=== PATIENT | female | born 1940 | race Caucasian/White ===

== ENCOUNTER 2019-11-27 08:34 | Outpatient (CLI) | payer MEDICARE, SELFPAY ==
--- NOTE | 2019-11-27 08:50 | XR_ITS ---
WS: [id number] PROCEDURE: XR chest 2V* [id number] CLINICAL INFORMATION: COUGH, LLL CRACKLES COMPARISON: September 04, 2012 FINDINGS: Heart: Cardiomegaly. Aortic calcification. Tortuous thoracic aorta. Lungs: Lungs are clear. No consolidation or pleural fluid. Moderate chronic emphysematous changes. Bones: Mild thoracic curve. XR/XR chest 2V* [id number] IMPRESSION: 1. Moderate chronic emphysematous changes. No acute pulmonary infiltrates. 2. Slight fibrosis left lung base. 3. Stable cardiomegaly.
== END 2019-11-27 08:35 | disposition home or self-care (01) ==
LOC: RADWPI 08:47
PROVIDERS: Family Provider Internal Medicine; PCP Internal Medicine; Visit Provider Internal Medicine
DX: R05 Cough (principal); J43.9 Emphysema, unspecified; J84.10 Pulmonary fibrosis, unspecified; I51.7 Cardiomegaly
CPT/HCPCS: 71046

== ENCOUNTER → 2021-05-20 16:15 | Outpatient (BNVA) | payer MEDICARE, SELFPAY | PROVIDERS: Family Provider Internal Medicine; PCP Internal Medicine; Visit Provider Nurse Practitioner Family | DX: R05.8 Other specified cough (principal); J98.11 Atelectasis; I51.7 Cardiomegaly | CPT/HCPCS: 71046 ==

== ENCOUNTER 2021-06-22 10:48 | Outpatient (CLI) | payer MEDICARE, SELFPAY ==
--- NOTE | 2021-06-22 10:58 | XR_ITS ---
WS: [id number] Exam: XR lumbar spine 2-3V* [id number] Date/Time of Exam: 06/22/2021 10:58 AM Reason For Exam: PAIN IN LUMBAR SPINE No acute fracture or dislocation. Mild biconcave deformity of L2 which may represent an old low-grade compression. Degenerative vacuum disc at L5-S1. Spondylosis. Mild facet DJD. No significant scoliosi s. Osteopenia. XR/XR lumbar spine 2-3V* [id number] IMPRESSION: 1. No acute fracture or malalignment. 2. Mild biconcave deformity of L2 which may represent an old low-grade compress ion fracture. 3. Degenerative changes.
== END 2021-06-22 10:49 | disposition home or self-care (01) ==
LOC: RAD 10:54
PROVIDERS: PCP Internal Medicine; Visit Provider Internal Medicine
DX: M54.50 Low back pain, unspecified (principal)
CPT/HCPCS: 72100

== ENCOUNTER 2021-07-06 17:52 | Emergency (ER) | payer MEDICARE, SELFPAY ==
[2021-07-06 18:12] VITALS: BP 124/84; PULSE 91; RESP 24; TEMP 36.7; O2SAT 95; BMI 30.2
--- NOTE | 2021-07-06 19:48 | CTR_ITS ---
PROCEDURE INFORMATION: Exam: CT Abdomen And Pelvis Without Contrast Exam date and time: 07/06/2021 7:48 PM Age: 80 years old Clinical indication: Abdominal pain; Flank; Right; Additional info: Eval for pain TECHNIQUE: Imaging protocol: Computed tomography of the abdomen and pelvis without contrast. Radiation optimization: All CT scans at this facility use at least one of these dose optimization techniques: automated exposure control; mA and/or kV adjustment per patient size (includes targeted exams where dose is matched to clinical indication); or iterative reconstruction. COMPARISON: CR XR lumbar spine 2-3V* [id number] 06/22/2021 11:12 AM RADIATION DOSE METRICS: Total DLP (mGy-cm): 1839.16 FINDINGS: Limitations: The absence of intravenous contrast lessens the sensitivity of this study for solid organ abnormalities. Pleural spaces: There are calcified pleural plaques anteriorly and posteriorly at both lung bases suggesting history of asbestos exposure. Heart: There is severe atherosclerotic calcification of the coronary arteries. Liver: There is an indeterminate subtle 3 cm size lesion posterior right lobe of the liver such as on image number 25 series 2. There is mild enlargement of the liver. Liver measures 20 cm in height. Gallbladder and bile ducts: There has been a cholecystectomy. Pancreas: Normal. No ductal dilation. Spleen: The spleen is normal. Adrenal glands: Normal. No mass. Kidneys and ureters: There has been a left nephrectomy. There is a right renal collecting system calcification. There is no evidence of right hydronephrosis. There is no stone in the right ureter. Stomach and bowel: There is no evidence of colitis/diverticulitis. Appendix: Not identified Intraperitoneal space: Unremarkable. No free air. No significant fluid collection. Vasculature: The aorta demonstrates mild atherosclerotic calcification. There is no evidence of an abdominal aortic aneurysm. Lymph nodes: There is right infrahilar mass and subcarinal adenopathy in the chest not fully evaluated on this exam. Further evaluation such as with contrast-enhanced CT scan of the chest suggested if not previously done. No abdominal adenopathy is identified. Urinary bladder: Unremarkable as visualized. Reproductive: There has been a hysterectomy. Bones/joints: There are lytic lesions in multiple vertebral bodies, right side of T6, anterior half of the T11 vertebral body, L2 vertebrae, mostly right side of the vertebral body and the left posterior elements with compression deformity of the superior endplate consistent with pathologic fracture and epidural extension posteriorly on the left. There is also lytic lesion involving the posterior aspect of the right side of L3 with compression fracture involving the right side of the superior endplate of L3. The L3 metastatic lesion extends into the right pedicle and there is epidural extension with associated spinal stenosis on the right. 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 There is also metastatic bone lesion posterior aspect of the right iliac crest measuring around 2 cm. Soft tissues: There is a large hernia containing bowel in the lateral abdominal wall left flank without incarceration or obstruction. CT/CT abdomen pelvis wo con [id number] IMPRESSION: 1. Findings worrisome for bone metastasis as described. 2. Findings in the right lung base worrisome for malignancy. 3. Right pleural effusion 4. Left flank abdominal wall hernia. 5. Indeterminate lesion in the right lobe of the liver. Further evaluation such as with contrast-enhanced study, or MRI suggested. 6. Coronary disease.
[2021-07-06 20:40] VITALS: RESP 34
[2021-07-06] MEDS: morphine 4 mg/mL SDV 1 mL IM (20:40)
--- NOTE | 2021-07-06 21:19 | PC.NURSE ---
patient received with c/o back pain for 6 weeks. 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 states has pain medications at home but needs more because of the pain. respirations even equal and unlabored. states no pain after medication given.
[2021-07-06] MEDS: lidocaine 5% Patch 1 PATCH TOPICAL (21:27)
[2021-07-06] MEDS: acetaminophen 500 mg Tablet PO (21:27)
--- NOTE | 2021-07-06 21:49 | ED_ITS ---
HPI - Back Pain/Injury General: Chief Complaint: Back Pain/Injury Stated Complaint: Back Pain Time Seen by Provider: 07/06/21 21:01 Course Vital Signs: Vital signs: Vital Signs Temperature 98.0 F 07/06/21 18:12 Pulse Rate 91 07/06/21 18:12 Respiratory Rate 34 H 07/06/21 20:40 Blood Pressure 124/84 07/06/21 18:12 Pulse Oximetry 95 07/06/21 18:12 MDM - Back Pain/Injury Labs Radiology Impressions Abdomen/Pelvis CT 07/06/21 19:48 IMPRESSION: 1. Findings worrisome for bone metastasis as described. 2. Findings in the right lung base worrisome for malignancy. 3. Right pleural effusion 4. Left flank abdominal wall hernia. 5. Indeterminate lesion in the right lobe of the liver. Further evaluation such as with contrast-enhanced study, or MRI suggested. 6. Coronary disease. ADDENDUM: 07/06/212044 Addendum: THIS REPORT CONTAINS FINDINGS THAT MAY BE CRITICAL TO PATIENT CARE. The findings were verbally communicated via telephone conference with TYREE ROPER at 8:43 PM TURNER SPLITTER MACHINE OPERATOR on 07/06/2021. The findings were acknowledged and understood. Discharge Plan Discharge Patient Disposition: Home Clinical Impression: Back pain, Bone metastases Condition: Stable Prescriptions: New lidocaine 5 % adhesive patch,medicated 1 patch topical DAILY PRN (Reason: pain) 10 Days Qty: 10 0RF Rx Instructions: leave on most painful area for up to 12 hrs Biofreeze (menthol) 5 % gel 1 ea topical BID PRN (Reason: pain) 10 Days Qty: 1 0RF acetaminophen-codeine 300-30 mg tablet 1 tab PO TID PRN (Reason: pain) Qty: 9 0RF Referrals: Prabha Edwards MD [Primary Care Provider] - Discharge Diet: Advance as tolerated Discharge Activity: Increase activity as tolerated Patient Instructions: Back Pain (ED), Opioid Safety Activity Restrictions/Additional Instructions: Our disease case manager rn will have you follow-up with the pain clinic and an oncologist in the next few days. You would be expected to have a phone call with our disease case manager rn who will put you on the schedule. Come back to the emergency room if the medicine does not work, if you have any worsening pain, no weakness or numbness in the legs, difficulty with controlling your bowel or bladder, or any new or concerning complaints. Here's your CT report below: [place] [facility] [address] [address] Scan Report Signed with Adddonnie Patient: Ashlee Brady Unit #: [id number] : 1940 Age/Sex: 80 / F ADM Date: 07/06/21 Loc: ER Room/Bed: Attending Dr: Ordering Provider/Ordering MD: Tyree Roper MD Date of Service: 07/06/21 Procedure(s): CT abdomen pelvis wo con [id number] Accession Number(s): [id number] Report Number: [id number]/CT abdomen pelvis wo con [id number] Addendum: THIS REPORT CONTAINS FINDINGS THAT MAY BE CRITICAL TO PATIENT CARE. The findings were verbally communicated via telephone conference with TYREE ROPER at 8:43 PM TURNER SPLITTER MACHINE OPERATOR on 07/06/2021. The findings were acknowledged and understood. ? Addendum Dictated By: ?John Barth Addendum Signed By: ?John Barth Signed Date/Time: 07/06/212044 Addendum Cosigned By: ? PROCEDURE INFORMATION: Exam: CT Abdomen And Pelvis Without Contrast Exam date and time: 07/06/2021 7:48 PM Age: 80 years old Clinical indication: Abdominal pain; Flank; Right; Additional info: Eval for pain TECHNIQUE: Imaging protocol: Computed tomography of the abdomen and pelvis without contrast. Radiation optimization: All CT scans at this facility use at least one of these dose optimization techniques: automated exposure control; mA and/or kV adjustment per patient size (includes targeted exams where dose is matched to clinical indication); or iterative reconstruction. COMPARISON: CR XR lumbar spine 2-3V* [id number] 06/22/2021 11:12 AM RADIATION DOSE METRICS: Total DLP (mGy-cm): 1839.16 FINDINGS: Limitations: The absence of intravenous contrast lessens the sensitivity of this study for solid organ abnormalities. Pleural spaces: There are calcified pleural plaques anteriorly and posteriorly at both lung bases suggesting history of asbestos exposure. Heart: There is severe atherosclerotic calcification of the coronary arteries. Liver: There is an indeterminate subtle 3 cm size lesion posterior right lobe of the liver such as on image number 25 series 2. There is mild enlargement of the liver. Liver measures 20 cm in height. Gallbladder and bile ducts: There has been a cholecystectomy. Pancreas: Normal. No ductal dilation. Spleen: The spleen is normal. Adrenal glands: Normal. No mass. Kidneys and ureters: There has been a left nephrectomy. There is a right renal collecting system calcification. There is no evidence of right hydronephrosis. There is no stone in the right ureter. Stomach and bowel: There is no evidence of colitis/diverticulitis. Appendix: Not identified Intraperitoneal space: Unremarkable. No free air. No significant fluid collection. Vasculature: The aorta demonstrates mild atherosclerotic calcification. There is no evidence of an abdominal aortic aneurysm. Lymph nodes: There is right infrahilar mass and subcarinal adenopathy in the chest not fully evaluated on this exam. Further evaluation such as with contrast-enhanced CT scan of the chest suggested if not previously done. No abdominal adenopathy is identified. Urinary bladder: Unremarkable as visualized. Reproductive: There has been a hysterectomy. Bones/joints: There are lytic lesions in multiple vertebral bodies, right side of T6, anterior half of the T11 vertebral body, L2 vertebrae, mostly right side of the vertebral body and the left posterior elements with compression deformity of the superior endplate consistent with pathologic fracture and epidural extension posteriorly on the left. There is also lytic lesion involving the posterior aspect of the right side of L3 with compression fracture involving the right side of the superior endplate of L3. The L3 metastatic lesion extends into the right pedicle and there is epidural extension with associated spinal stenosis on the right. 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 There is also metastatic bone lesion posterior aspect of the right iliac crest measuring around 2 cm. Soft tissues: There is a large hernia containing bowel in the lateral abdominal wall left flank without incarceration or obstruction. CT/CT abdomen pelvis wo con [id number] IMPRESSION: 1. Findings worrisome for bone metastasis as described. 2. Findings in the right lung base worrisome for malignancy. 3. Right pleural effusion 4. Left flank abdominal wall hernia. 5. Indeterminate lesion in the right lobe of the liver. Further evaluation such as with contrast-enhanced study, or MRI suggested. 6. Coronary disease. ? Dictated By: John Barth Signed By: John Barth Signed Date/Time: 07/06/212034 DD/ 47 Coding Level of Care Code ED Back Up Scan Coordinator for Crista Casas
--- NOTE | 2021-07-06 22:10 | W.ED.GENADLT ---
HPI - General Adult General: Chief complaint: Back Pain/Injury Stated complaint: Back Pain Time Seen by Provider: 07/06/21 21:01 History of Present Illness: Patient is a 80-year-old female with a history of DJD chronic back pain for the last 6 weeks presenting to the emergency room with worsening pain. Patient sees Dr. Robin and because of significance of pain was told to come to the emergency room for evaluation. She reports pain is with ambulation, but patient denies any saddle symptoms, history of IV drug use, diabetes, HIV or other sources of immunocompromise. Denies any fever/chill, recent weight loss, or lower extremity weakness. NO recent trauma. Onset:6weeks ago Duration:6 weeks Location:home Severity:severe Associated symptoms: Deny chest pain, dyspnea, nausea, rash, palpitations or vomiting Review of Systems Const: Denies: fever(s) or chills Eyes: Denies: change in vision ENMT: Denies: mouth pain Card: Denies: chest pain or palpitations Resp: Denies: dyspnea or non-productive cough GI: Denies: abdominal pain, nausea, vomiting or diarrhea : Denies: dysuria Musc: Reports: other (+back pain); Denies: extremity pain Skin/Breast: Denies: rash or new lesions Neuro: Denies: weakness in extremities Psych: Reports: other (Normal mood) [place]/Lymph: Denies: easy bruising PFS ED PFSH: Social History (Updated 07/06/21 @ 22:14 by Tyree Roper MD) Smoking and tobacco status: never smoked Alcohol intake: never Substance/Drug Use: never Physical Exam Const: COMMON NORMALS: alert HENMT: COMMON NORMALS: atraumatic HEAD & SCALP: atraumatic MOUTH: moist mucous membranes not abnormal Eye: COMMON NORMALS: EOMs intact bilaterally and conjunctivae normal CONJUNCTIVA: Yes conjunctivae normal Neck/C-Spine: COMMON NORMALS: full ROM and supple Resp: COMMON NORMALS: normal respiratory effort and clear to auscultation bilaterally AUSCULTATION: clear to auscultation bilaterally Cardio: COMMON NORMALS: regular rate RATE: regular rate GI: COMMON NORMALS: Soft to palpation and non-tender PALPATION: Yes Soft to palpation Back/Pelvis: OTHER: +Palpable midline tenderness over the thoracic and lumbar spine Extremity: COMMON NORMALS: full ROM Neuro: SENSORIUM/ORIENTATION: Yes alert MOTOR EXAM: No Abnormal motor strength present and Other motor observations present (no focal motor deficits) Psych: COMMON NORMALS: speech normal SPEECH: Yes normal speech MOOD & AFFECT: Yes euthymic mood Course Vital Signs: Vital signs: Vital Signs Temperature 98.0 F 07/06/21 18:12 Pulse Rate 91 07/06/21 18:12 Respiratory Rate 34 H 07/06/21 20:40 Blood Pressure 124/84 07/06/21 18:12 Pulse Oximetry 95 07/06/21 18:12 MDM - General Adult Medical Decision Making Female presents emergency room with complaints of lower back pain for the last 6 weeks. On exam, patient has no focal neurological deficit. No saddle anesthesia. 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 I discussed phone extensively with patient patient has a copy of the CT report. No suspicion for cord compression or epidural abscess currently. I have given patient follow up with our machine adjuster leader case trim to be seen by our outpatient pain clinic, oncology, and PCP for new diagnosis of cancer. Patient aware of a call from our machine adjuster leader case trim to schedule for appointment(s) and verbalizes understanding of the importance of following up. In the emergency room, patient received nebulized ketamine, lidocaine patch, IM morphine, and Tylenol with significant improvement in symptoms. Patient requests 1 tablet of codine to go home with and was given. Patient requested for a GI cocktail in the ER and was given for upset stomach. Rx Tylenol, lidocaine patch, and menthol PRN pain, maalox/pepcid PRN dyspepsia, and zofran PRN nausea/vomiting Disposition: Discharge. Patient counseled regarding diagnostic impression, treatment plan. Patient given ED strict return precautions to return for continuation, worsening, or development of new symptoms. Instructed to f/u w/ PCP, pain clinic and oncology regarding symptoms today. Patient verbalized understanding. Lab Data Radiology Impressions Abdomen/Pelvis CT 07/06/21 19:48 IMPRESSION: 1. Findings worrisome for bone metastasis as described. 2. Findings in the right lung base worrisome for malignancy. 3. Right pleural effusion 4. Left flank abdominal wall hernia. 5. Indeterminate lesion in the right lobe of the liver. Further evaluation such as with contrast-enhanced study, or MRI suggested. 6. Coronary disease. ADDENDUM: 07/06/212044 Addendum: THIS REPORT CONTAINS FINDINGS THAT MAY BE CRITICAL TO PATIENT CARE. The findings were verbally communicated via telephone conference with TYREE ROPER at 8:43 PM PET AMBASSADOR on 07/06/2021. The findings were acknowledged and understood. Imaging Data Other Imaging: Radiologist's impression: [address] [place] [address] CT Scan Report Signed with Addenda Patient: Ashlee Brady Unit #: [id number] : 1940 Age/Sex: 80 / F ADM Date: 07/06/21 Loc: ER Room/Bed: Attending Dr: Ordering Provider/Ordering MD: Tyree Roper MD Date of Service: 07/06/21 Procedure(s): CT abdomen pelvis wo con [id number] Accession Number(s): [id number] Report Number: [id number]/CT abdomen pelvis wo con [id number] Addendum: THIS REPORT CONTAINS FINDINGS THAT MAY BE CRITICAL TO PATIENT CARE. The findings were verbally communicated via telephone conference with TYREE ROPER at 8:43 PM PET AMBASSADOR on 07/06/2021. The findings were acknowledged and understood. ? Addendum Dictated By: ?John Barth Addendum Signed By: ?John Barth Signed Date/Time: 07/06/212044 Addendum Cosigned By: ? PROCEDURE INFORMATION: Exam: CT Abdomen And Pelvis Without Contrast Exam date and time: 07/06/2021 7:48 PM Age: 80 years old Clinical indication: Abdominal pain; Flank; Right; Additional info: Eval for pain TECHNIQUE: Imaging protocol: Computed tomography of the abdomen and pelvis without contrast. Radiation optimization: All CT scans at this facility use at least one of these dose optimization techniques: automated exposure control; mA and/or kV adjustment per patient size (includes targeted exams where dose is matched to clinical indication); or iterative reconstruction. COMPARISON: CR XR lumbar spine 2-3V* [id number] 06/22/2021 11:12 AM RADIATION DOSE METRICS: Total DLP (mGy-cm): 1839.16 FINDINGS: Limitations: The absence of intravenous contrast lessens the sensitivity of this study for solid organ abnormalities. Pleural spaces: There are calcified pleural plaques anteriorly and posteriorly at both lung bases suggesting history of asbestos exposure. Heart: There is severe atherosclerotic calcification of the coronary arteries. Liver: There is an indeterminate subtle 3 cm size lesion posterior right lobe of the liver such as on image number 25 series 2. There is mild enlargement of the liver. Liver measures 20 cm in height. Gallbladder and bile ducts: There has been a cholecystectomy. Pancreas: Normal. No ductal dilation. Spleen: The spleen is normal. Adrenal glands: Normal. No mass. Kidneys and ureters: There has been a left nephrectomy. There is a right renal collecting system calcification. There is no evidence of right hydronephrosis. There is no stone in the right ureter. Stomach and bowel: There is no evidence of colitis/diverticulitis. Appendix: Not identified Intraperitoneal space: Unremarkable. No free air. No significant fluid collection. Vasculature: The aorta demonstrates mild atherosclerotic calcification. There is no evidence of an abdominal aortic aneurysm. Lymph nodes: There is right infrahilar mass and subcarinal adenopathy in the chest not fully evaluated on this exam. Further evaluation such as with contrast-enhanced CT scan of the chest suggested if not previously done. No abdominal adenopathy is identified. Urinary bladder: Unremarkable as visualized. Reproductive: There has been a hysterectomy. Bones/joints: There are lytic lesions in multiple vertebral bodies, right side of T6, anterior half of the T11 vertebral body, L2 vertebrae, mostly right side of the vertebral body and the left posterior elements with compression deformity of the superior endplate consistent with pathologic fracture and epidural extension posteriorly on the left. There is also lytic lesion involving the posterior aspect of the right side of L3 with compression fracture involving the right side of the superior endplate of L3. The L3 metastatic lesion extends into the right pedicle and there is epidural extension with associated spinal stenosis on the right. 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 There is also metastatic bone lesion posterior aspect of the right iliac crest measuring around 2 cm. Soft tissues: There is a large hernia containing bowel in the lateral abdominal wall left flank without incarceration or obstruction. CT/CT abdomen pelvis wo con [id number] IMPRESSION: 1. Findings worrisome for bone metastasis as described. 2. Findings in the right lung base worrisome for malignancy. 3. Right pleural effusion 4. Left flank abdominal wall hernia. 5. Indeterminate lesion in the right lobe of the liver. Further evaluation such as with contrast-enhanced study, or MRI suggested. 6. Coronary disease. ? Dictated By: John Barth Signed By: John Barth Signed Date/Time: 07/06/212034 DD/ 47 Discharge Plan Discharge Patient Disposition: Home Clinical Impression: Back pain, Bone metastases Condition: Stable Prescriptions: New lidocaine 5 % adhesive patch,medicated 1 patch topical DAILY PRN (Reason: pain) 10 Days Qty: 10 0RF Rx Instructions: leave on most painful area for up to 12 hrs Biofreeze (menthol) 5 % gel 1 ea topical BID PRN (Reason: pain) 10 Days Qty: 1 0RF acetaminophen-codeine 300-30 mg tablet 1 tab PO TID PRN (Reason: pain) Qty: 9 0RF Zofran 4 mg tablet 4 mg PO TID PRN (Reason: nausea and vomiting) 4 Days Qty: 12 0RF Pepcid 20 mg tablet 20 mg PO BID PRN (Reason: abdominal pain) 10 Days Qty: 20 0RF Maalox Advanced 1,000-60 mg tablet,chewable 1 tab PO TID PRN (Reason: abdominal pain) 7 Days Qty: 21 0RF Discharge Orders: Discharge ED (Routine); Ordered 07/06/21 Ordered By: Tyree Roper Referrals: Prabha Edwards MD [Primary Care Provider] - Discharge Diet: Advance as tolerated Discharge Activity: Increase activity as tolerated Patient Instructions: Back Pain (ED), Opioid Safety Activity Restrictions/Additional Instructions: Our machine adjuster leader case trim will have you follow-up with the pain clinic and an oncologist in the next few days. You would be expected to have a phone call with our machine adjuster leader case trim who will put you on the schedule. Come back to the emergency room if the medicine does not work, if you have any worsening pain, no weakness or numbness in the legs, difficulty with controlling your bowel or bladder, or any new or concerning complaints. Here's your CT report below: [address] [address] [address] Scan Report Signed with Latha Patient: Ashlee Brady Unit #: [id number] : 1940 Age/Sex: 80 / F ADM Date: 07/06/21 Loc: ER Room/Bed: Attending Dr: Ordering Provider/Ordering MD: Tyree Roper MD Date of Service: 07/06/21 Procedure(s): CT abdomen pelvis wo con [id number] Accession Number(s): [id number] Report Number: [id number]/CT abdomen pelvis wo con [id number] Addendum: THIS REPORT CONTAINS FINDINGS THAT MAY BE CRITICAL TO PATIENT CARE. The findings were verbally communicated via telephone conference with TYREE ROPER at 8:43 PM PET AMBASSADOR on 07/06/2021. The findings were acknowledged and understood. ? Addendum Dictated By: ?John Barth Addendum Signed By: ?John Barth Signed Date/Time: 07/06/212044 Addendum Cosigned By: ? PROCEDURE INFORMATION: Exam: CT Abdomen And Pelvis Without Contrast Exam date and time: 07/06/2021 7:48 PM Age: 80 years old Clinical indication: Abdominal pain; Flank; Right; Additional info: Eval for pain TECHNIQUE: Imaging protocol: Computed tomography of the abdomen and pelvis without contrast. Radiation optimization: All CT scans at this facility use at least one of these dose optimization techniques: automated exposure control; mA and/or kV adjustment per patient size (includes targeted exams where dose is matched to clinical indication); or iterative reconstruction. COMPARISON: CR XR lumbar spine 2-3V* [id number] 06/22/2021 11:12 AM RADIATION DOSE METRICS: Total DLP (mGy-cm): 1839.16 FINDINGS: Limitations: The absence of intravenous contrast lessens the sensitivity of this study for solid organ abnormalities. Pleural spaces: There are calcified pleural plaques anteriorly and posteriorly at both lung bases suggesting history of asbestos exposure. Heart: There is severe atherosclerotic calcification of the coronary arteries. Liver: There is an indeterminate subtle 3 cm size lesion posterior right lobe of the liver such as on image number 25 series 2. There is mild enlargement of the liver. Liver measures 20 cm in height. Gallbladder and bile ducts: There has been a cholecystectomy. Pancreas: Normal. No ductal dilation. Spleen: The spleen is normal. Adrenal glands: Normal. No mass. Kidneys and ureters: There has been a left nephrectomy. There is a right renal collecting system calcification. There is no evidence of right hydronephrosis. There is no stone in the right ureter. Stomach and bowel: There is no evidence of colitis/diverticulitis. Appendix: Not identified Intraperitoneal space: Unremarkable. No free air. No significant fluid collection. Vasculature: The aorta demonstrates mild atherosclerotic calcification. There is no evidence of an abdominal aortic aneurysm. Lymph nodes: There is right infrahilar mass and subcarinal adenopathy in the chest not fully evaluated on this exam. Further evaluation such as with contrast-enhanced CT scan of the chest suggested if not previously done. No abdominal adenopathy is identified. Urinary bladder: Unremarkable as visualized. Reproductive: There has been a hysterectomy. Bones/joints: There are lytic lesions in multiple vertebral bodies, right side of T6, anterior half of the T11 vertebral body, L2 vertebrae, mostly right side of the vertebral body and the left posterior elements with compression deformity of the superior endplate consistent with pathologic fracture and epidural extension posteriorly on the left. There is also lytic lesion involving the posterior aspect of the right side of L3 with compression fracture involving the right side of the superior endplate of L3. The L3 metastatic lesion extends into the right pedicle and there is epidural extension with associated spinal stenosis on the right. 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 There is also metastatic bone lesion posterior aspect of the right iliac crest measuring around 2 cm. Soft tissues: There is a large hernia containing bowel in the lateral abdominal wall left flank without incarceration or obstruction. CT/CT abdomen pelvis wo con [id number] IMPRESSION: 1. Findings worrisome for bone metastasis as described. 2. Findings in the right lung base worrisome for malignancy. 3. Right pleural effusion 4. Left flank abdominal wall hernia. 5. Indeterminate lesion in the right lobe of the liver. Further evaluation such as with contrast-enhanced study, or MRI suggested. 6. Coronary disease. ? Dictated By: John Barth Signed By: John Barth Signed Date/Time: 07/06/212034 DD/ 47 Coding Level of Care Code ED Print Production Associate for Chg Fwd Exam Comprehensive
[2021-07-06] MEDS: ondansetron 4 MG Tablet PO (22:36)
[2021-07-06] MEDS: acetaminophen-codeine 300-30mg Tablet 1 TAB PO (22:36)
[2021-07-06] MEDS: lidocaine 2% viscous 15 ML, aluminum-mag hydrox-simethicon 30 ML, sucralfate oral liq 1 GM PO (22:36)
[2021-07-06 22:46] VITALS: PULSE 87; RESP 20; O2SAT 98
--- NOTE | 2021-07-07 12:28 | DCPLANNER ---
shipping receiving manager had message to refer patient to cancer treatment center, refer patient to see her primary care physician, and refer patient to pain management. shipping receiving manager called the [facility], spoke with Annalise, was told that the cancer center would not be able to see patient until they have a biopsy completed so that the physicians know what they are working with. Patient would need to be seen by Dr. Coffey to have a biopsy completed before being seen by the cancer [facility] center. shipping receiving manager cannot refer patient to pain management, the referral to pain management would need to be come from patients primary care physician. shipping receiving manager called patient to speak with patient about the different referrals. Patient stated that she does not want to go to the Cancer Treatment Center, that she does not want any of the referrals. Patient has decided that she would like to go onto Hospice services. shipping receiving manager called [facility] to confirm if they see patients that live in [place]. shipping receiving manager was told that they do not service outside of [place]. shipping receiving manager did call [facility] and [facility] and both of the companies will service patients in the [place] area. shipping receiving manager called patient and informed her of the two different companies that could provide services. Patient stated that she would like to use [facility]. shipping receiving manager faxed patients information to [facility], they will review patients information and will call patient.
== END 2021-07-06 22:48 | disposition home or self-care (01) ==
PROVIDERS: Emergency Provider Emergency Medicine; PCP Internal Medicine
DX: M54.9 Dorsalgia, unspecified (principal); C34.90 Malignant neoplasm of unspecified part of unspecified bronchus or lung; C79.51 Secondary malignant neoplasm of bone
CPT/HCPCS: 72131; 74176; 96372; 99283; J2270; J3490; Q0162